=== PATIENT | female | born 1960 | race Caucasian/White ===

== ENCOUNTER → 2023-06-29 17:59 | Outpatient (REF) | payer BC, SELFPAY | LOC: WDC 17:59 | PROVIDERS: ATTENDING PHYSICIAN Physician Assistant | DX: Z12.31 Encounter for screening mammogram for malignant neoplasm of breast (principal) | CPT/HCPCS: 77063; 77067 ==

== ENCOUNTER → 2023-07-30 09:05 | Outpatient (REF) | payer BC, SELFPAY | LOC: WDC 09:05 | PROVIDERS: ATTENDING PHYSICIAN Physician Assistant | DX: R92.8 Other abnormal and inconclusive findings on diagnostic imaging of breast (principal) | CPT/HCPCS: 76642 ==

== ENCOUNTER → 2024-10-24 17:38 | Outpatient (REF) | payer BC, SELFPAY | LOC: WDC 17:38 | PROVIDERS: ATTENDING PHYSICIAN Nurse Practitioner Family; FAMILY PHYSICIAN Physician Assistant | DX: Z12.31 Encounter for screening mammogram for malignant neoplasm of breast (principal) | CPT/HCPCS: 77063; 77067 ==